=== PATIENT | male | born 1965 | race Caucasian/White ===

== ENCOUNTER 2019-11-01 21:33 | Observation (INO) ==
[2019-11-02] MEDS ORDERED: Naloxone 0.4 MG/ML INJ IVP PRN (01:13)
[2019-11-02] MEDS ORDERED: Nitroglycerin 0.4 MG TAB.SUBL SL PRN (01:17)
[2019-11-02] MEDS ORDERED: Dextrose Gel 15 GM/37.5 ML TUBE PO PRN ×2 (01:21)
[2019-11-02] MEDS ORDERED: D5% in Water 1,000 ML IVC PRN (01:21)
[2019-11-02] MEDS ORDERED: *HR* Dextrose 50 % in Water (Vial) 50 ML VIAL IVP PRN (01:21)
[2019-11-02] MEDS ORDERED: *HR* Heparin 5,000 UNIT/ML VIAL IVP PRN ×2 (02:19)
[2019-11-02] MEDS ORDERED: *HR* Heparin 5,000 UNIT/ML VIAL IVP ONE (02:19)
[2019-11-02] MEDS ORDERED: Heparin 25,000UNIT/250ML 1/2NS 25,000 UNIT/250 ML IV.SOLN IVC SCH (02:30)
[2019-11-02 02:46] LABS: Basophils # 0.1 K/mcL (0.0-0.2); Basophils % 0.6 %; Eosinophils # 0.4 K/mcL (0.0-0.6); Hemoglobin 13.7 g/dL (12.9-16.9); Immature Granulocytes % 0.4 % (0-4); Lymphocytes # 3.3 K/mcL (0.6-4.6); Lymphocytes % 39.9 %; Mean Corpuscular HGB Conc 32.6 g/dL (31.6-35.5); Mean Corpuscular Hemoglobin 27.6 pg (28.0-33.3); Mean Corpuscular Volume 84.7 fL (83.0-100.0); Mean Platelet Volume 9.7 fL (9.4-12.4); Monocytes # 0.7 K/mcL (0.0-1.3); Monocytes % 8.9 %; Neutrophils # 3.7 K/mcL (1.6-8.9); Nucleated Red Blood Cells 0.2 /100 WBC (0); Platelet Count 235 K/mcL (140-400); Red Blood Count 4.96 M/mcL (4.19-5.50); Red Cell Distribution Width 12.3 % (11.5-14.5); Segmented Neutrophils % 45.2 %; White Blood Count 8.2 K/mcL (4.3-11.1)
[2019-11-02 02:53] LABS: Heparin anti-factor XA UFH 0.59 IU/mL (0.30-0.70); Prothrombin Time 11.6 Seconds (9.4-12.1)
[2019-11-02 03:03] LABS: Chol/HDL Ratio 3.7 (0-4.9); Magnesium 1.8 mg/dL (1.6-2.6); Phosphorous 3.7 mg/dL (2.7-4.5)
[2019-11-02 03:04] LABS: BUN/Creatinine Ratio 14 (6-26); Blood Urea Nitrogen 12 mg/dL (6-20); Calcium 8.7 mg/dL (8.6-10.3); Carbon Dioxide 22 mEq/L (23-29); Chloride 107 mEq/L (98-107); Glucose 171 mg/dL (70-105); Osmolality,Calculated 288 (280-300); Potassium 3.9 mEq/L (3.5-5.1); Sodium 137 mEq/L (136-145); eGFR For African Americans > 60 (> 60); eGFR For Non-African Americans > 60 (> 60)
[2019-11-02] MEDS ORDERED: *HR* Heparin 5,000 UNIT/ML VIAL SQ SCH (06:00)
[2019-11-02] MEDS: Insulin LISPRO 300 UNITS/3 ML VIAL SQ SCH ×7 (06:36→21:04)
[2019-11-02] MEDS: Insulin DETEMIR 100 UNIT/ML X5UNITS SQ SCH ×2 (07:26→20:35)
[2019-11-02 08:28] LABS: Estimated Average Glucose 226 mg/dl
[2019-11-02] MEDS: lisinopriL 10 MG TABLET PO SCH (10:01)
[2019-11-02] MEDS: Cholecalciferol (D-3) 1,000 UNIT (25MCG) TABLET PO SCH (10:01)
[2019-11-02] MEDS: Aspirin 81 MG TAB.CHEW PO SCH (10:01)
[2019-11-02] MEDS ORDERED: 0.9 % Sodium Chloride 1,000 ML ONE ×2 (12:33→12:46)
[2019-11-02] MEDS ORDERED: Nitroglycerin 1,000 MCG/10 ML VIAL IV ONE (12:33)
[2019-11-02] MEDS ORDERED: ISOVUE-370 200 ML INFUS..BTL ONE ×2 (12:33→13:26)
[2019-11-02] MEDS ORDERED: *HR* Heparin 10,000 UNIT/10 ML VIAL ONE (12:33)
[2019-11-02] MEDS ORDERED: Heparin 1,000 UNITS/500 mL 500 ML ONE (12:33)
[2019-11-02] MEDS ORDERED: *HR* FentaNYL (PF) 100 MCG/2 ML VIAL ONE (12:56)
[2019-11-02] MEDS ORDERED: *HR* Midazolam HCl 2 MG/2 ML VIAL ONE (12:56)
[2019-11-02] MEDS ORDERED: Tirofiban 12.5 MG/250ML 12.5 MG/250 ML BAG ONE (13:17)
[2019-11-02] MEDS ORDERED: *HR* Ticagrelor 90 MG TABLET ONE (13:50)
[2019-11-02] MEDS ORDERED: Tirofiban 12.5 MG/250ML 12.5 MG/250 ML BAG IVC SCH (14:00)
[2019-11-02] MEDS: *HR* Ticagrelor 90 MG TABLET PO SCH (20:08)
[2019-11-02] MEDS: *HR* Heparin 5,000 UNIT/ML VIAL SQ SCH (20:36)
[2019-11-02] MEDS ORDERED: Cyprohepatdine 4 MG TABLET PO SCH (21:00)
[2019-11-03] MEDS: *HR* Heparin 5,000 UNIT/ML VIAL SQ SCH (06:54)
[2019-11-03] MEDS: Insulin LISPRO 300 UNITS/3 ML VIAL SQ SCH ×4 (06:55→11:52)
[2019-11-03] MEDS: Aspirin 81 MG TAB.CHEW PO SCH (09:02)
[2019-11-03] MEDS: Cholecalciferol (D-3) 1,000 UNIT (25MCG) TABLET PO SCH (09:02)
[2019-11-03] MEDS: lisinopriL 10 MG TABLET PO SCH (09:02)
[2019-11-03] MEDS: *HR* Ticagrelor 90 MG TABLET PO SCH (09:02)
[2019-11-03] MEDS: Insulin DETEMIR 100 UNIT/ML X5UNITS SQ SCH (09:02)
[2019-11-03] MEDS ORDERED: Perflutren Lipid Microsphere 1.3 ML in 0.9 % Sodium Chloride 8.7 ML IVP PRN (09:41)
[2019-11-03] MEDS ORDERED: Furosemide 20 MG/2 ML VIAL IVP ONE (09:42)
[2019-11-03 11:00] VITALS: BP 107/74
== END 2019-11-03 16:09 | disposition home or self-care (01) ==
LOC: 2ANU
PROVIDERS: ADMIT Internal Medicine; ATTEND Internal Medicine